=== PATIENT | female | born 1990 | race African-American/Black ===

== ENCOUNTER 2018-10-28 18:51 | Emergency (ER) | payer SELFPAY ==
[~2018-10-28] VITALS: Ht 172.7 cm; Wt 75.7 kg
[~2018-10-28 18:51] MED LIST: PREN-96 PO
[2018-10-29 02:52] VITALS: BP 118/70
== END 2018-10-29 03:11 | disposition home or self-care (01) ==
LOC: ER 18:51
DX: M62.838 Other muscle spasm (principal); V43.52XA Car driver injured in collision with other type car in traffic accident, initial encounter; Y93.89 Activity, other specified; Y99.8 Other external cause status; Y92.410 Unspecified street and highway as the place of occurrence of the external cause
CPT/HCPCS: 70450; 72125; 81025